=== PATIENT | male | born 1945 | race Caucasian/White ===

== ENCOUNTER 2018-08-14 05:28 | Emergency (ER) | payer OTHER ==
[~2018-08-14] VITALS: Ht 182.9 cm; Wt 81.6 kg
[2018-08-14] MEDS ORDERED: ONDANSETRON HCL 4 MG/2 ML VIAL IV ONE (07:00)
[2018-08-14] MEDS ORDERED: MORPHINE SULFATE 4 MG/ML SYR/VIAL IV ONE (07:00)
[2018-08-14] MEDS ORDERED: SODIUM CHLORIDE 0.9% 1,000 ML IV ONE (07:03)
[2018-08-14] MEDS ORDERED: PROMETHAZINE HCL 25 MG/ML 1ML IV ONE (07:15)
[2018-08-14 08:08] LABS: Basophils # (auto) 0 uL; Eosinophils # (auto) 0 uL; Hemoglobin 10.7 g/dL (13.5-17.5); Lymphocytes # (auto) 0.7 uL; Monocytes # (auto) 0.4 uL; Neutrophils # (auto) 3.9 uL
[2018-08-14 08:10] LABS: Basophils % (auto) 0.4 % (0.0-2.0); Eosinophils % (auto) 0.7 % (0.0-7.0); Hematocrit 31.7 % (41.0-53.0); Lymphocytes % (auto) 13.4 % (10.0-50.0); Mean Corpuscular Hemoglobin 26.9 pg (28.0-32.0); Mean Corpuscular Hgb Conc. 33.8 g/dL (32.0-36.0); Mean Corpuscular Volume 79.5 fL (80.0-100.0); Monocytes % (auto) 7.4 % (0.0-12.0); Neutrophils % (auto) 78.1 % (37.0-80.0); Platelet Count (auto) 180 10^3/uL (140-450); Red Blood Cells 3.99 10^6/uL (4.5-5.90); Red Cell Distribution Width 15.7 % (11.8-14.3)
[2018-08-14] MEDS ORDERED: PIPERACILLIN-TAZOB 3.375GM 100 ML IV ONE (08:15)
[2018-08-14 08:28] LABS: Albumin 3.3 g/dL (3.4-5.0); BUN/Creatinine Ratio 44.4; Calcium 7.9 mg/dL (8.5-10.1); Magnesium 2.1 mg/dL (1.6-2.6); Potassium 5.2 mmol/L (3.5-5.1)
[2018-08-14 08:34] LABS: Bilirubin, Total 0.5 mg/dL (0.2-1.0); Total Protein 6.9 g/dL (6.4-8.2)
[2018-08-14 08:38] LABS: Amylase 49 U/L (25-115); Lipase 369 U/L (73-393)
[2018-08-14 09:06] VITALS: BP 134/71
[2018-08-14] MEDS ORDERED: SODIUM POLYSTYRENE SULF 15 GM POWDER PO ONE (09:15)
[2018-08-14] MEDS ORDERED: LORazepam 2MG/ML-1ML VIAL IV ONE (09:15)
[2018-08-14] MEDS ORDERED: DEXTROSE (50%) 50ML SYRG IV PRN (09:15)
[2018-08-14] MEDS ORDERED: InsuLIN REG 1unit/0.01ml Soln (100units/ml) SC SCH ×2 (11:30→22:00)
[2018-08-14] MEDS ORDERED: ACCU-CHEK COMFORT CURVE STRIP VI SCH (11:30)
== END 2018-08-14 12:58 | disposition left against medical advice (07) ==
LOC: ER 05:28 → EDBD 05:28 → ER 12:58
DX: K85.90 Acute pancreatitis without necrosis or infection, unspecified (principal); N39.0 Urinary tract infection, site not specified; E11.9 Type 2 diabetes mellitus without complications; Z88.8 Allergy status to other drugs, medicaments and biological substances
CPT/HCPCS: 36415; 71045; 74176; 80053; 82150; 83605; 83690; 83735; 83880; 84484; 85025; 87040; 87077; 87147; 87186; 93005; 96374; 96375; 99285; J2270; J2405; J2543; J2550; 96365